=== PATIENT | female | born 1955 | race Caucasian/White ===

== ENCOUNTER 2023-07-26 16:17 | Observation (INO) | payer OTHER, SELFPAY ==
[2023-07-26] VITALS (10 sets, daily range): BP systolic 130–162; BP diastolic 65–96; BMI 34.8
--- NOTE | 2023-07-26 12:56 | ED.GENMED ---
History of Present Illness
General
Chief Complaint: Fainting/Passed Out
Source: patient and ambulance crew
Exam Limitations: none
Time Seen by Provider: 07/26/23 12:41
Nursing documentation reviewed up to this point in time: agreed with
Travel History
Have you had any contact with someone who has COVID-19?: No
Do you have any symptoms of coronavirus? Fever > 100 degrees, chills, cough, shortness of breath, sore throat, loss of taste or smell, muscle aches, or headache?: No
History of Present Illness
History of Present Illness:
68-year-old female with a past medical history of hypertension, hyperlipidemia, diabetes who presents to the emergency room for evaluation after syncopal event. Patient reports that she had just finished a yoga class that was about 1 hour long.
She says that she felt well during the class and did not have any symptoms. She says that while she was sitting in a chair after the class she began to feel dizzy/lightheaded and passed out. Apparently this was witnessed and she fell towards the
side and hit her head on the ground�she was wearing glasses and sustained some cuts under her left eye and on the bridge of her nose as a result. She had immediate return to baseline. EMS was called to bring her to the hospital to be assessed.
She says that she has had some nausea and a headache since. She denies any preceding chest pain, shortness of breath, palpitations and does not have any of the symptoms in the emergency room. She denies any abdominal pain or flank pain. Reports
that she has some soreness in her face mainly on the bridge of the nose and under the left eye where she has lacerations�no other serious injuries from the fall. She says that she does not have any pain in the neck, back, extremities. She does not
take any blood thinners. She is unsure of her last tetanus. She does admit that she does not have very much to eat this morning and had only a bit of water during the workout.
Review of Systems
Review of Systems
All Other Systems: ROS reviewed and negative except as documented in HPI and ROS
Constitutional: Denies fever
Respiratory: Denies trouble breathing
Cardiac: Reports syncope; Denies chest pain or palpitations
ABD/GI: Reports nausea and vomiting; Denies abdominal pain
: Denies flank pain
Musculoskeletal: Denies joint pain, neck pain or back pain
Neurological: Reports headache; Denies weakness or numbness
Phy Exam
Physical Exam
Physical Exam:
General: Awake, alert, oriented x3; no acute distress
Head: Normocephalic, patient has some swelling and tenderness over the nasal bridge and a small superficial abrasion; she has some tenderness in the left maxillary region and a superficial skin tear; she has a left forehead hematoma
Eyes: Conjunctiva normal, EOMI, pupils equal round and reactive to light bilaterally
Throat: Airway intact, handling secretions, tongue atraumatic
Neck: Trachea midline, no cervical spine tenderness
Back: No tenderness in the thoracic or lumbar spine and no signs of trauma to the back or the flank
Lungs: Clear to auscultation bilaterally, no wheezing, rales, rhonchi
Heart: Regular rate and rhythm, no murmurs, gallops, or rubs
Abd: Soft, non distended, nontender with no abdominal mass
Neuro: Cranial nerves grossly intact, speech fluid, no motor or sensory deficits
Skin: Abrasions to the face as above
Extremities: Atraumatic, good pulses in all extremities, moves all extremities through full comfortable range of motion
Scores
Heart Failure Risk
Heart Failure Risk Score: Not Applicable
Heart Score for Chest Pain Patients
STEMI patient?: Not applicable
Withdrawal Assessment of Alcohol
Withdrawal Assessment Completed?: Not applicable
Course
Orders/Labs/Results
Orders:
Orders
07/26/23 12:40
Electrocardiogram (*1) Urgent
Reason for Study: Syncope
EKG- Treatment ONCE
07/26/23 12:52
CT Head W/o Iv Contrast Urgent
Comment:
Reason For Exam: fall with frontal trauma, headache, nausea/vomit
Ondansetron Injectable [Zofran] 4 mg IV NOW STA
07/26/23 12:53
0.9% Sodium Chloride 1000 ml [Nss] 1,000 ml IV BOLUS
07/26/23 13:07
Orthostatic VS- Treatment ONCE
07/26/23 13:12
CMP [Comprehensive Metabolic Panel] Urgent
Complete Blood Count/With Diff Urgent
Troponin I Urgent
07/26/23 14:35
NEUROLOGY CONSULT Urgent
Consulting Provider: Nick Oviedo
Was physician already notified: Yes
Dexamethasone Sod Phosphate [Decadron] 10 mg IV NOW STA
Meclizine [Antivert] 25 mg PO NOW STA
07/26/23 14:46
Aspirin Chewable [Low Strength Aspirin] 324 mg PO NOW STA
Abnormal Lab Results
07/26/23
13:12
WBC 13.6 H 10^3/uL
(4.8-10.8)
MPV 10.8 H fL
(7.4-10.4)
Abs Immat Gran (auto) 0.1 H 10^3/uL
(0-0.05)
Absolute Neuts (auto) 7.4 H 10^3/uL
(1.4-6.5)
Absolute Lymphs (auto) 4.8 H 10^3/uL
(1.2-3.4)
Absolute Monos (auto) 1.0 H 10^3/uL
(0.1-0.6)
Immature Gran % 0.7 H %
(0-0.5)
Chloride 108 H mmol/L
(98-107)
Carbon Dioxide 19 L mmol/L
(22-30)
BUN 20 H mg/dl
(7-17)
Glucose 210 H mg/dl
(70-99)
ALT 37 H U/L
(0-35)
07/26/23 13:12
07/26/23 13:12
Vital Signs
Initial and Last Documented VS:
Initial Vital Signs
Temp Pulse Resp BP Pulse Ox
36.6 C 90 16 139/91 92
07/26/23 12:41 07/26/23 12:41 07/26/23 12:41 07/26/23 12:41 07/26/23 12:41
Last Documented Vital Signs
Temp Pulse Resp BP Pulse Ox
36.6 C 85 18 130/65 95
07/26/23 12:41 07/26/23 13:45 07/26/23 13:45 07/26/23 13:44 07/26/23 13:51
MDM/Problems Addressed
Differential Diagnosis Includes:
Vasovagal, orthostatic, dehydration, dysrhythmia, subarachnoid hemorrhage less likely
MDM/Problems Addressed:
68-year-old female presents to the emergency room for evaluation after syncopal event after doing yoga for an hour. Admits that she did not have very much to eat or drink this morning. Her vital signs are all within normal limits here. Physical
exam as above. She does have some nausea and headache and some soreness in the face where she struck her head/glasses. EKG shows a sinus rhythm with no AV block, no delta wave, no Brugada, normal QTc. Will check orthostatic vitals. Plan to place
an IV check labs including CBC and CMP. Will check CT head. Accu-Chek was slightly high (230) per EMS. Will provide some fluids and antiemetic. Monitor on telemetry and reassess after the above.
Initial labs reviewed CBC shows slight leukocytosis to 13.6. CMP no clinically significant abnormalities. Show troponin sent in triage which was undetectable�never complained of chest pain. CT head reviewed by me no clear acute pathology,
radiology report pending. On clinical reassessment patient says that she is not having severe dizziness/room spinning sensation. She now has bidirectional nystagmus. Certainly positional changes with yoga could cause peripheral vertigo but with
syncopal episode and bidirectional nystagmus with her vascular risk factors concerned that this could be posterior CVA. Case discussed with neurology for consultation; recommended treating with Antivert and dexamethasone for now and they will
evaluate.
CT report from radiology likely small infarct in the lentiform nucleus; neurology evaluated patient, unlikely that this finding explains her symptoms but some concern for posterior CVA will load with aspirin, no TNK. Will admit to the hospitalist
for continued evaluation and treatment. Discussed case with hospitalist for admission.
Chronic conditions affecting care:
Diabetes, hypertension, hyperlipidemia�high risk for stroke
*Radiology
Radiology exam reviewed: preliminary read by ED provider and radiology read reviewed
*Pulse Oximetry
Patient hypoxic: no
*EKG
Interpreted by ED Provider?: Yes
Heart Rate: 84
Rate: normal
Rhythm: sinus
[place]: left axis deviation
Interval: normal interval
QRS Pattern: normal QRS and left vent hypertrophy
Ischemia: no ischemia
*Critical Care Note
Total Time (30-74mins, 75-104mins- exclusive of procedures): Not Applicable
Data Reviewed
Source: patient and ambulance crew
Patient Management
Discussion with other providers: Hospitalist (Discussed with hospitalist) and Turning Sander Operator (Discussed with neurologist)
Escalation/DeEscalation of care consider admission/obs:
Admission indicated
ED Attending Note
-
Portions of this chart may have been created with voice recognition software.� Occasional wrong word or��sound alike� substitutions may have occurred due to the inherent limitations of voice recognition software.
Discharge Plan
Departure
Patient Disposition: Admit
Date of Disposition: 07/26/23
Time of Disposition: 15:01
Admit to doctor: Gal
Presentation/result/management discussed w/ accepting MD/DO: Hospitalist
Discharge Problem:
Dizziness, Syncope, Acute CVA (cerebrovascular accident), Abrasion of face
Referrals:
Rick Love MD [Family Provider] -
Interventions
Interventions:
*Risk Screen - Suicide Last Done: 07/26/23 12:41
*General Assessment Last Done: 07/26/23 12:41
*Neglect/Abuse Screening Last Done: 07/26/23 12:41
ED- Fall Risk Assessment Last Done: 07/26/23 12:41
*ED COVID-19 Vaccine History Last Done: 07/26/23 12:41
ED- Cardiac Assessment Last Done: 07/26/23 13:24
ED- Neurological Assessment Last Done: 07/26/23 13:24
Discharge Date and Time
Print Language: GREEK
[2023-07-26] MEDS: NSS 1000 IV (13:10)
[2023-07-26] MEDS: ZOFRAN 4 MG IV (13:10)
[2023-07-26 13:23] LABS: % Basophils 0.4 % (0-2); % Eosinophils 1.6 % (0-6); % Immature Granulocytes 0.7 % (0-0.5); % Lymphocytes 35.7 % (20.5-51.1); % Monocytes 7.2 % (1.7-9.3); % Neutrophils 54.4 % (42.2-75.2); Absolute Basophils 0.1 10^3/uL (0-0.2); Absolute Eosinophils 0.2 10^3/uL (0-0.7); Absolute Immature Granulocytes 0.1 10^3/uL (0-0.05); Absolute Lymphocytes 4.8 10^3/uL (1.2-3.4); Absolute Neutrophils 7.4 10^3/uL (1.4-6.5); Hemoglobin 13.5 g/dL (12.0-16.0); Mean Corp Hgb Conc. 34.6 g/dL (33.0-37.0); Mean Corpuscular Hgb 28.1 pg (27.0-31.0); Mean Corpuscular Volume 81.3 fL (81.0-99.0); Mean Platelet Volume 10.8 fL (7.4-10.4); Nucleated Red Blood Cells % 0 %; Platelet Count 273 10^3/uL (130-400); Red Cell Dist. Width 12.6 % (11.5-14.5); White Blood Cell Count 13.6 10^3/uL (4.8-10.8)
[2023-07-26 13:36] LABS: ALT (SGPT) 37 U/L (0-35); AST (SGOT) 27 U/L (14-36); Albumin 4.6 g/dl (3.5-5.0); Alkaline Phosphatase 87 U/L (38-126); Blood Urea Nitrogen 20 mg/dl (7-17); Calcium 9.6 mg/dl (8.4-10.2); Carbon Dioxide 19 mmol/L (22-30); Chloride 108 mmol/L (98-107); Glucose 210 mg/dl (70-99); Potassium 3.8 mmol/L (3.5-5.1); Sodium 140 mmol/L (135-145); Total Bilirubin 0.5 mg/dl (0.2-1.3); Total Protein 7.3 g/dl (6.3-8.2); eGFR > 60.00
[2023-07-26 13:48] LABS: Troponin I < 0.012 ng/ml
--- NOTE | 2023-07-26 15:04 | CON.NEURO4 ---
Consultation - Neurology 4
-
CONSULTING PHYSICIAN: Jayme Oviedo
REFERRING PHYSICIAN: ER
DICTATED BY: Jayme Oviedo
DATE/TIME OF REQUEST: 07/25
DATE/TIME OF CONSULTATION:07/25
Reason for Consultation: Vertigo, nystagmus, vomiting, concern concussion vs cerebellar infarction
History of Present Illness:
Patient is a 68-year-old right-handed woman with a past medical history of prediabetes and hypertension presents to hospital after syncopal event at yoga then developed vomiting and some balance difficulty and dizziness.
Patient reports that she has been in her normal state of health regularly with no recent health issues or illnesses and no changes in medications. She did a yoga class this morning and this went well and she was seated in her chair doing some
breathing exercises and the exercise was ending. She reports that she had a sudden onset feeling of warmth and slight vision change and then the next thing she remembers she woke up on the floor having sustained mild head trauma with nose and left
cheek abrasion. Family and friends quickly went to help with her and they called 911 and she was brought to the ambulance. Patient reports multiple episodes of vomiting around 10 times she did receive IV Zofran. At this point she feels queasy.
She denies any headache at this time but does feel like she gets dizzy with turning her head. No tinnitus or hearing loss. She has a dry mouth and her daughter relates that her speech does seem a little bit abnormal and a slurred type of manner.
Patient has not had any double vision or vision loss unilateral facial or limb paresthesia or unilateral weakness.
Patient did eat a little bit of bread this morning.
She has no personal history of TIA stroke or heart attack or heart disease. She does have a history of a syncopal event occurring in the context of blood pressure medications and she had some adjustments to them at that point.
Past Medical History: Pre-diabetes, hypertension
Surgical History: None
Family History: Multiple family members with TIA
Social History: and lives with her , no tobacco, no significant alcohol, no recreational drugs
Allergies: No known drug allergies
Review of Symptoms:
Patient denies any fever, headache, chest pain, shortness of breath, or symptoms. Positive for vomiting.
Physical Exam:
Patient has abrasion to the nose and the left cheek with some mild erythema of the left cheek, no hemorrhage or abnormality of the orbit or in the eye seen neck with no masses, no trauma to the cranium, oropharynx clear without any bleed, heart rate
regular breathing unlabored abdomen is obese soft nontender no lower extremity edema is
Neurologic Examination:
The patient is awake, alert and oriented x 3. She is able to follow commands and answer questions appropriately. There is no aphasia. On cranial nerve assessment, minimal dysarthria felt more likely due to dry mouth, pupils are 3 mm bilateral,
round and reactive to light and accommodation, no ptosis or Estela's syndrome seen. Visual ravi are full. Extraocular movements are intact. There is leftward beating nystagmus on left gaze, no nystagmus appreciated on right gaze. Facial
sensations are intact and bilaterally symmetrical, there is no facial asymmetry. Hearing is intact bilaterally to normal conversation volume. Tongue palate and uvula are midline. Sternocleidomastoid strengths are full bilaterally. Motor strengths
are 5/5 bilateral upper and lower extremities on medical research Hazen scale. Postural tremor with hands outstretched more on the left arm. No Parkinsonism or rigidity. Deep tendon reflexes are 2+ bilateral upper and lower extremities and
Babinski is absent bilaterally. Intact light touch and symmetric. There was no extinction noted on double simultaneous stimulation. Coordination is intact by finger to nose bilaterally. No overshoot in rapid downward movement of arms. Normal heel
vargas maneuver. Gait exam deferred.
Neuro Imaging: CT head noncontrast no acute infarct seen no hemorrhage no masses or edema
Chronic appearing right basal ganglia infarction seen
Impressions
1) Syncopal events sound suspicious for vasovagal event with prodrome of warmth proceeding it. Syncopal event occurred from chair and she had fall to the ground having minor head trauma to the nose and left cheek. Afterwards she has developed
multiple episodes of vomiting and has some abnormal nystagmus noted on examination along with dizziness with head turns
-Generally syncope is a rare manifestation of stroke. Vasovagal, cardiac causes should considered as well.
-On my exam nystagmus was not quite consistent with a central nystagmus
-I favor concussion after syncope as the more likely cause of vomiting and nystagmus but certainly posterior circulation stroke needs to be considered which we will treat for
2) Right basal ganglia infarction on CT head is chronic and could not explain syncope or vomiting/nystagmus
3) Syncope, some prodrome of warmth. Occurring in stead position after a yoga class.
4) Prediabetes on Metformin
5) Treated Hypertension
IV Tenecteplase/IAT candidacy: Patient with no focal symptoms of stroke and has explanation for vomiting/nystagmus in the form of concussion after syncope, also had minor head trauma, taken together the risks of TNK outweigh the benefits and
patient has plausible other cause for symptoms that are not acute ischemic stroke.
Recommendations:
1. Give aspirin 324 and start aspirin 81 mg daily. Would avoid dual antiplatelet therapy given the recent head trauma and bleeding risks
2. Permissive hypertension goal less than 220/120 until tomorrow morning
3. Neurologic checks and NIH stroke scales
4. As needed Zofran as well as meclizine for nausea/vomiting and vertigo
5. Discussed the importance of avoiding taking risks with walking as may have impaired balance, must avoid another head injury
6. Cardiac telemetry
7. Consider orthostatic vital signs when vomiting and symptoms have improved some
8. Eventual PT evaluation
9. Check MRI of the brain, MRA of the head and neck
Will follow
Discussed patient care with: Patient and her family, Dr Rocha
[2023-07-26] MEDS: ANTIVERT 25 MG PO (15:09)
[2023-07-26] MEDS: DECADRON 10 MG IV (15:09)
[2023-07-26] MEDS: LOW STRENGTH ASPIRIN 324 MG PO ×2 (15:10→18:29)
--- NOTE | 2023-07-26 16:12 | HPS.HSE ---
Family Physician
-
Family Physician: Rick Love
Chief Complaint
-
Syncope
History of Present Illness
Patient is a pleasant 68 years old female with history of hypertension, diabetes, who came to the ER after syncopal event after yoga class, fall and hit her face, patient had CT scan done which came back showed no acute abnormality.
Patient has sustained a mild trauma to the nose and there is left cheek abrasion.
Patient currently complaining of dizziness and nausea.
Otherwise patient seen and examined at bedside, at bedside denies any chest pain or shortness of breath, no abdominal pain, no diarrhea or constipation.
Medical History
Past Medical History
Past Medical History: Reports HTN and NIDDM
Past Surgical History: Reports None
Social History
Tobacco: Non-smoker
Alcohol: None
Drug: None
Personal:
Living: With Family
Family History
Family History: Other (TIA)
Allergies / Home Medications
Allergies reflects when Allergies were last updated in [facility].
Home Medications with original date entered in [facility]
Allergy/Medication List:
Allergies
Allergy/AdvReac Type Severity Reaction Status Date / Time
No Known Allergies Allergy Unverified 07/26/23 13:06
Home Medications
amlodipine 10 mg tablet (Norvasc) 10 mg PO DAILY 07/26/23
budesonide-formoterol HFA 160 mcg-4.5 mcg/actuation aerosol inhaler (Symbicort) 1 inh inhalation R DAILYPRN PRN SOB 07/26/23
famotidine 20 mg tablet (Pepcid) 20 mg PO DAILY 07/26/23
fenofibrate micronized 134 mg capsule 134 mg PO DAILY 07/26/23
metformin 500 mg tablet 500 mg PO DAILY 07/26/23
olmesartan 5 mg tablet 5 mg PO DAILY 07/26/23
oxybutynin chloride 5 mg tablet,extended release 24 hr 5 mg PO DAILY 07/26/23
rosuvastatin 20 mg tablet 20 mg PO DAILY 07/26/23
Review of Systems
-
A 12 point ROS was completed and negative except as noted: Yes
Constitutional: Reports Fatigue; Denies Fever, Weight Gain, Weight Loss or Sleep Disturbance
EENT: Denies Tearing, Sore Throat, Mouth Pain, Mouth Swelling or Runny Nose
Respiratory: Denies Cough, Hemoptysis or Trouble Breathing
Cardiac: Denies Chest Pain, Diaphoresis, Palpitations or Syncope
Abdomen/GI: Reports Nausea and Vomiting; Denies Abdominal Pain, Diarrhea, Constipated, Bloody Stools or Black Stools
: Denies Dysuria, Frequency, Flank Pain, Incontinence, Difficulty Voiding, Urgency, Bleeding or Dark Urine
Musculoskeletal: Denies Joint Pain, Joint Swelling, Muscle Pain, Muscle Stiffness or Edema
Skin: Denies Itching or Rash
Neurological: Reports Dizzy, Headache and Weakness; Denies Numbness
Endocrine: Denies Polyuria, Polydipsia or Temp Intolerance
Hematologic/Lymphatic: Denies Bleeding, Swollen Glands or Bruising
Psych: Reports Calm; Denies Depression, Anxiety or Panic Disorder
Physical Exam
Vital Signs
Vital Signs
Temp Pulse Resp BP Pulse Ox
97.9 F 85 18 130/65 95
07/26/23 12:41 07/26/23 13:45 07/26/23 13:45 07/26/23 13:44 07/26/23 13:51
Physical Exam
General: Well Developed, Well Nourished, No Apparent Distress, Comfortable and Good Appetite; No Pain, Chills or Sweats
HEENT: Good Dentition, PERRLA, Nose Appears Normal and Ears Appear Normal; No Atraumatic (Patient with ecchymosis in the nose and cheek)
Respiratory: Clear
Cardiac: S1/S2 and Regular Rhythm
Breast: Deferred by me
GI: Soft, Non Tender, Non Distended and Normal Bowel Sounds
Genito-urinary: Deferred by me
Musculoskeletal: No Clubbing, No Cyanosis and No Edema
Skin: Warm; No Rash, Jaundice, Ulcers, Lesions or Decubitus Ulcers
Neuro: Awake, Alert, Oriented, AO x 3, No Motor Deficits, Nonfocal/grossly intact and Cranial Nerves Intact
Hematologic/Lymphatic: No Lymphadenopathy
Psych: Calm
Laboratory Results
-
07/26/23 13:12
07/26/23 13:12
Laboratory Results
Total Bilirubin 0.5 mg/dl (0.2-1.3) 07/26/23 13:12
AST 27 U/L (14-36) 07/26/23 13:12
ALT 37 U/L (0-35) H 07/26/23 13:12
Alkaline Phosphatase 87 U/L (38-126) 07/26/23 13:12
Troponin I < 0.012 ng/ml 07/26/23 13:12
Data Reviewed
-
Diagnostic Radiology: Report Reviewed by me
CT Scan: Report Reviewed by me
Medical Tests (Nuc Med, Echo, EKG etc): Report Reviewed by me
Lab Data: Labs Reviewed by me
Old Records: Reviewed
Impression/Plan
-
IMPRESSION:
Patient is a pleasant 68 years old with history of diabetes, hyperlipidemia, hypertension who came to the ER after syncopal event and head trauma, CT head negative for acute abnormality.
PLAN:
Syncope, rule out CVA
CT head done in the ER shows:
No acute intracranial abnormality.
Small focus of decreased attenuation in the right lentiform nucleus most likely representing a small infarct.
Seen by neurology in the ER
Admit to telemetry bed.
Frequent neurocheck.
Allow permissive hypertension.
MRI brain MRA head and neck.
Check hemoglobin A1c, fasting lipid panel.
PT/OT consult.
Social service for discharge.
History of hypertension.
Hold home meds for now
[id number] diabetes mellitus
Continue home medication
Insulin sliding scale
Diabetic diet
Hemoglobin A1c
COPD.
Continue Symbicort
CODE STATUS: Full code
DVT prophylaxis: Lovenox
Diet: Regular diet
[2023-07-26] MEDS: TIGAN 200 MG IM (16:38)
[2023-07-26] MEDS: LIPITOR 40 MG PO (23:05)
[2023-07-26] MEDS: LOVENOX 40 MG SC (23:06)
[2023-07-27 03:00] VITALS: BP 163/90
[2023-07-27] MEDS: TYLENOL 650 MG PO (05:53)
[2023-07-27 05:55] LABS: Hematocrit 37.9 % (37.0-47.0); Mean Corp Hgb Conc. 34.3 g/dL (33.0-37.0); Mean Corpuscular Hgb 27.9 pg (27.0-31.0); Mean Corpuscular Volume 81.3 fL (81.0-99.0); Mean Platelet Volume 11.2 fL (7.4-10.4); Platelet Count 276 10^3/uL (130-400); Red Blood Cell Count 4.66 10^6/uL (4.20-5.40); Red Cell Dist. Width 12.5 % (11.5-14.5); White Blood Cell Count 9.6 10^3/uL (4.8-10.8)
[2023-07-27 06:16] LABS: Blood Urea Nitrogen 17 mg/dl (7-17); Calcium 9.9 mg/dl (8.4-10.2); Carbon Dioxide 24 mmol/L (22-30); Chloride 106 mmol/L (98-107); Estimated Creatinine Clearance 101 ml/min; Glucose 192 mg/dl (70-99); HDL Cholesterol 40 mg/dl; LDL Cholesterol, Calculated 100 mg/dl; Potassium 4.7 mmol/L (3.5-5.1); Sodium 141 mmol/L (135-145); Total Cholesterol 180 mg/dl (50-199); Triglyceride 200 mg/dl (10-149); Very Low Density Lipoprotein 40 mg/dl (0-30); eGFR > 60.00
--- NOTE | 2023-07-27 06:18 | PTCARENOTE ---
Pt admitted to unit from ED. Pt stood and pivoted to bed from stretcher with nursing staff. AAXO3. Pt reports 'some dizziness when I got into bed.' Pt reports dizziness resolved. Bedside commode at bedside. Pt oriented to room with call rodriguez in
reach. Plan of care ongoing.
[2023-07-27 07:00] VITALS: BP 157/86
--- NOTE | 2023-07-27 07:50 | W.PN.NEURO.1 ---
Today's Communication / Plan
-
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
-Counseled concussion may have symptoms for days to a few weeks but expect improvement and good prognosis
-Neurochecks and NIH scales
-Symptomatic therapy for nausea, dizziness, headache
-MRI brain, MRA head and neck
-Agree with TTE and cardiac telemetry for syncope
-If MRI brain with no acute stroke no barriers to discharge from my standpoint
Neuro Assessment/Plan
Assessment
Impressions
1) Syncopal events sound suspicious for vasovagal event with prodrome of warmth proceeding it. Syncopal event occurred from chair and she had fall to the ground having minor head trauma to the nose and left cheek. Afterwards she has developed
multiple episodes of vomiting and has some abnormal nystagmus noted on examination along with dizziness with head turns
-Generally syncope is a rare manifestation of stroke. Vasovagal, cardiac causes should considered as well.
-On my exam nystagmus was not quite consistent with a central nystagmus
-I favor concussion after syncope as the more likely cause of vomiting and nystagmus but certainly posterior circulation stroke needs to be considered which we will treat for
2) Right basal ganglia infarction on CT head is chronic and could not explain syncope or vomiting/nystagmus
3) Syncope, some prodrome of warmth. Occurring in stead position after a yoga class.
4) Prediabetes on Metformin
5) Treated Hypertension
Subjective/Objective
Subjective Data
Date of Service: July 27, 2023
No acute events, feeling improved, mild pressure in the head, no further vomiting, no vision changes, no weakness or paresthesia, no double vision
Objective Data
Vital Signs
Temp Pulse Resp BP Pulse Ox
97.5 F 93 14 163/90 94
07/27/23 03:00 07/27/23 03:00 07/27/23 03:00 07/27/23 03:00 07/27/23 03:00
Lab Results
07/27/23 05:35
07/27/23 05:35
Sodium 141 mmol/L (135-145) 07/27/23 05:35
Potassium 4.7 mmol/L (3.5-5.1) 07/27/23 05:35
BUN 17 mg/dl (7-17) 07/27/23 05:35
Glucose 192 mg/dl (70-99) H 07/27/23 05:35
Calcium 9.9 mg/dl (8.4-10.2) 07/27/23 05:35
LDL Cholesterol, Calc 100 mg/dl 07/27/23 05:35
Patient Allergies
No Known Allergies Allergy (Unverified 07/26/23 13:06)
Review of Systems
-
History Source: Patient
All other systems: Reviewed and negative
Constitutional: No Symptoms
EENT: No Symptoms Reported
Respiratory: No Symptoms
Cardiac: No Symptoms
Abdomen/GI: No Symptoms
Genitourinary: No Symptoms
Musculoskeletal: No Symptoms
Skin: No Symptoms
Neuro: No Symptoms
Endocrine: No Symptoms
Hematologic / Lymphatic: No Symptoms
Allergy / Immunology: No Symptoms
Physical Exam
-
General: Well Developed
Eyes: No Ptosis
HEENT: Other (Small 1 cm Nose and left cheek abrasions covered, no purulence)
Neck: No Bruits Bilaterally
Respiratory: Clear to Auscultation
Cardiac: Regular Rhythm
GI: Normal Bowel Sounds
Skin: Unremarkable
Extremities: No Clubbing
Psych: Unremarkable
Extended Neurological Exam
Mood & Affect: Mood Unremarkable and Affect Unremarkable
Attention Span & Concentration: Awake, Alert and Interactive
Memory: Unremarkable
Tremor: Hand Tremor Absent
Involuntary Movement: None
Speech: Quality Unremarkable and Quantity Unremarkable; Negative Expressive Aphasia or Receptive Aphasia
Cranial Nerve II: Left Eye: Pupillary Reactivity Unremarkable, Pupillary Size Unremarkable and Visual Adkins Intact
Cranial Nerve II: Right Eye: Pupillary Reactivity Unremarkable, Pupillary Size Unremarkable and Visual Adkins Intact
Cranial Nerves III, IV, : Extraocular Movement: Extraocular Movement Full in all Directions
Muscle Strength, Overall: Full Throughout
Pronator Drift: No Drift in Upper Extremities
Deep Tendon Reflexes: Trace Throughout
Vibration Sensation: Unremarkable
Touch Sensation: Unremarkable
Coordination: Uzkcka-kxkq-qmcemo Testing Unremarkable
Data Reviewed
-
CT Head: Report Reviewed and Image Reviewed
MRI Head: Ordered and Pending
MRA Head: Ordered and Pending
MRA Neck: Ordered and Pending
[2023-07-27 08:31] LABS: Glycohemoglobin (HgbA1c) 7.4 % (4.0-5.6)
[2023-07-27 08:33] LABS: Glucose - Point of Care 197 mg/dl (70-99)
[2023-07-27] MEDS: GLUCOPHAGE 500 MG PO (08:40)
[2023-07-27] MEDS: DITROPAN 2.5 MG PO (08:40)
[2023-07-27] MEDS: PEPCID 20 MG PO (08:41)
[2023-07-27] MEDS: ASPIR LOW (ENTERIC COATED) 81 MG PO (08:41)
[2023-07-27] MEDS: NOVOLOG FLEXPEN-LOW RESISTANCE 1 UNITS SC ×2 (08:41→14:23)
[2023-07-27 10:00] VITALS: BP 172/83; BP 172/89
[2023-07-27 11:00] VITALS: BP 141/78
[2023-07-27] MEDS: ATIVAN 0.5 MG IV (11:28)
[2023-07-27 13:14] LABS: Glucose - Point of Care 191 mg/dl (70-99)
--- NOTE | 2023-07-27 14:29 | W.PN.HOSP.TC ---
Today's Communication/Plan
-
Discharge home today
Assessment / Plan
Assessment / Plan
Patient is a pleasant 68 years old with history of diabetes, hyperlipidemia, hypertension who came to the ER after syncopal event and head trauma, CT head negative for acute abnormality.
PLAN:
Syncope, rule out CVA
CT head done in the ER shows:
No acute intracranial abnormality.
Small focus of decreased attenuation in the right lentiform nucleus most likely representing a small infarct.
Seen by neurology in the ER
Admit to telemetry bed.
Frequent neurocheck.
Allow permissive hypertension.
MRI brain showed:
1. No MRI evidence for acute infarct or intracranial hemorrhage.
2. 1.3 cm chronic ischemic infarct in the right basal ganglia.
3. Minimal periventricular white matter leukoaraiosis in the frontal lobes.
4. Mild diffuse cerebral and cerebellar volume loss.
5. Severe left-sided facet joint arthrosis at C3/C4 and C4/C5.
MRA Brain/[place] without contrast shows:
1. Very small diameter and short length left middle cerebral artery M1 segment with early branching of the left middle cerebral artery into the M2 segment superior and inferior divisions. Small amount of collateral blood flow around the proximal
M2 divisions. Diagnostic possibilities are (1) chronic left middle cerebral artery M1 segment occlusion with partial recanalization or (2) a congenital anomaly.
2. No MRA evidence for large vessel intracranial arterial stenosis or occlusion in the posterior circulation.
MRA neck with contrast showed:
1. Less than 25% diameter bilateral proximal internal carotid artery stenoses.
2. Severe stenosis (greater than 70% diameter) in the proximal right vertebral artery.
3. Very diminutive diameter and short length left middle cerebral artery M1 segment with adjacent tiny collateral vessels. Early branching of the left middle cerebral artery M1 segment.
Discussed with neurology.
Start baby aspirin and continue with the statin.
Follow-up with neurologist
Hemoglobin A1c 7.4, LDL 100
Discharge home today after echo.
History of hypertension.
Resume home meds on discharge
Zih-dlcymgp-urguwnvvc diabetes mellitus
Continue home medication
Insulin sliding scale
Diabetic diet
Hemoglobin A1c
COPD.
Continue Symbicort
CODE STATUS: Full code
DVT prophylaxis: Lovenox
Diet: Regular diet
Anticipated Discharge: Today
Subjective/Interval History
-
Date of Service: July 27, 2023
Patient seen and examined at bedside, denies any chest pain or shortness of breath, no abdominal pain, no nausea, no vomiting, no diarrhea or constipation.
Objective Data
-
Labs:
Laboratory Results
07/27/23
05:35
WBC 9.6
Hgb 13.0
Hct 37.9
Plt Count 276
Sodium 141
Potassium 4.7
Chloride 106
Carbon Dioxide 24
BUN 17
Creatinine 0.5 L
Glucose 192 H
Calcium 9.9
Vital Signs:
Vital Signs
Temp Pulse Resp BP Pulse Ox
99.2 F 94 17 141/78 94
07/27/23 11:00 07/27/23 11:00 07/27/23 11:00 07/27/23 11:00 07/27/23 11:00
Physical Exam
-
General: Well Developed and No Apparent Distress
HEENT: Normocephalic, Atraumatic and Moist Mucous Membranes
Respiratory: Clear to Auscultation
Cardiac: Regular Rhythm and S1/S2; Negative Murmur, Rub or Gallop
GI: Soft, Nontender, Nondistended and Normal Bowel Sounds; Negative Organomegaly
Rectal: Deferred by Provider
Musculoskeletal: No Clubbing, No Cyanosis and No Edema
Skin: Negative Rash
Neuro: Nonfocal/Grossly Intact
--- NOTE | 2023-07-27 14:42 | CM ---
Patient seen bedside with spouse and daughter (RN)
Patient lives with spouse in a 2 story home with 2 steps to enter.
Patient independent prior to admission without assistive devices.
Patient with no hx VN or SNF.
Spouse will transport home.
PT/OT evals (P).
JOSEPH reviewed.
PCP: Dr Tatum
Pharmacy: [facility]
Plan: home no needs anticiapted
--- NOTE | 2023-07-27 14:42 | W.DCSUMMARY ---
Discharge Summary
Discharge Data
Date of Admission: 07/26/23
Date of Discharge: 07/27/23
-
Pending Results: No
Hospital Course
Patient is a pleasant 68 years old with history of diabetes, hyperlipidemia, hypertension who came to the ER after syncopal event and head trauma, CT head negative for acute abnormality.
PLAN:
Syncope, rule out CVA
CT head done in the ER shows:
No acute intracranial abnormality.
Small focus of decreased attenuation in the right lentiform nucleus most likely representing a small infarct.
Seen by neurology in the ER
Admit to telemetry bed.
Frequent neurocheck.
Allow permissive hypertension.
MRI brain showed:
1. No MRI evidence for acute infarct or intracranial hemorrhage.
2. 1.3 cm chronic ischemic infarct in the right basal ganglia.
3. Minimal periventricular white matter leukoaraiosis in the frontal lobes.
4. Mild diffuse cerebral and cerebellar volume loss.
5. Severe left-sided facet joint arthrosis at C3/C4 and C4/C5.
MRA Brain/[place] without contrast shows:
1. Very small diameter and short length left middle cerebral artery M1 segment with early branching of the left middle cerebral artery into the M2 segment superior and inferior divisions. Small amount of collateral blood flow around the proximal
M2 divisions. Diagnostic possibilities are (1) chronic left middle cerebral artery M1 segment occlusion with partial recanalization or (2) a congenital anomaly.
2. No MRA evidence for large vessel intracranial arterial stenosis or occlusion in the posterior circulation.
MRA neck with contrast showed:
1. Less than 25% diameter bilateral proximal internal carotid artery stenoses.
2. Severe stenosis (greater than 70% diameter) in the proximal right vertebral artery.
3. Very diminutive diameter and short length left middle cerebral artery M1 segment with adjacent tiny collateral vessels. Early branching of the left middle cerebral artery M1 segment.
Discussed with neurology.
Start baby aspirin and continue with the statin.
Follow-up with neurologist
Hemoglobin A1c 7.4, LDL 100
Discharge home today after echo.
History of hypertension.
Resume home meds on discharge
Dai-[id number]-ndsafckvr diabetes mellitus
Continue home medication
Insulin sliding scale
Diabetic diet
Hemoglobin A1c
COPD.
Continue Symbicort
CODE STATUS: Full code
DVT prophylaxis: Lovenox
Diet: Regular diet
Anticipated Discharge: Today
Discharge Plan
-
Patient Disposition: Home (Routine Discharge)
Discharge Diagnosis/Procedures: Syncope
Diet: Low Sodium and Diabetic, Carb Controlled
Activity: No restrictions
Driving Restrictions: As prior to admission
Referrals:
Nick Oviedo MD [Active] -
Rick Love MD [Family Provider] -
Prescriptions:
New
aspirin 81 mg Tablet,Delayed Release (Dr/Ec)
81 mg PO DAILY Qty: 30 0RF
meclizine 25 mg Tablet
25 mg PO Q8HPRN PRN (Reason: dizziness) Qty: 21 0RF
Continued
metformin 500 mg Tablet
500 mg PO DAILY
fenofibrate micronized 134 mg Capsule
134 mg PO DAILY
famotidine [Pepcid] 20 mg Tablet
20 mg PO DAILY
amlodipine [Norvasc] 10 mg Tablet
10 mg PO DAILY
oxybutynin chloride 5 mg Tablet Extended Release 24hr
5 mg PO DAILY
rosuvastatin 20 mg Tablet
20 mg PO DAILY
budesonide-formoterol [Symbicort] 160-4.5 mcg/actuation Hfa Aerosol Inhaler
1 inh INHALATION R DAILYPRN PRN (Reason: SOB)
olmesartan 5 mg tablet
5 mg PO DAILY
Discharge Orders:
Discharge Patient (As Directed); Ordered 07/27/23
Ordered By: Joseph Hernandez
Discharge Date and Time
Print Language: S[place]UD[place]
[2023-07-27 15:04] VITALS: BP 136/74
== END 2023-07-27 15:28 | disposition home or self-care (01) ==
LOC: 4 WEST ACU 16:17
PROVIDERS: Emergency Medicine; ADMITTING PHYSICIAN General Practice; CONSULT PHYSICIAN Student in an Organized Health Care Education/Training Program; EMERGENCY PHYSICIAN Emergency Medicine; FAMILY PHYSICIAN Family Medicine
DX: R55 Syncope and collapse (principal); I10 Essential (primary) hypertension; E78.5 Hyperlipidemia, unspecified; J44.9 Chronic obstructive pulmonary disease, unspecified; E11.9 Type 2 diabetes mellitus without complications; Z79.4 Long term (current) use of insulin; S00.81XA Abrasion of other part of head, initial encounter; W07.XXXA Fall from chair, initial encounter; Z86.73 Personal history of transient ischemic attack (TIA), and cerebral infarction without residual deficits; Z79.82 Long term (current) use of aspirin
CPT/HCPCS: 70450; 70544; 70548; 70551; 80048; 80053; 80061; 82962; 83036; 84484; 85025; 85027; 87070; 93005; 93306; 96361; 96374; 96375; 97162; 97166; 99285; A9585; G0378